=== PATIENT | female | born 1960 | race Caucasian/White ===

== ENCOUNTER → 2023-03-21 | Outpatient (CLI) | payer MEDICAID ==
--- NOTE | 2023-03-21 12:14 | CTL ---
EXAMINATION TYPE: CT Low Dose Lung DATE OF EXAM ORDERED: 03/21/2023 HISTORY: Long-term tobacco use. Lung cancer screening CT DLP: [address] CTDI: 1.8 mGy Automated exposure control for dose reduction was used. SCREENING VISIT: Baseline COMPARISON: None TECHNIQUE: Low dose computed tomography scan was performed through the chest at 1 mm thick sections a nd reconstructed images in multiple planes at 1 mm and [address] DIAGNOSTIC QUALITY: Satisfactory FINDINGS: LUNG NODULES: Present, detailed below: There is a 5 mm calcified nodule or benign granuloma superior left lower lobe axial image 95. No greater than 5 mm noncalcified pulmonary nodules LUNGS: COPD: Severity: Mild Fibrosis: Severity: None Lymph nodes: None Other findings: None RIGHT PLEURAL SPACE: Effusion: None Calcification: None Thickening: None Pneumothorax: None LEFT PLEURAL SPACE: Effusion: None Calcification: None Thickening: None Pneumothorax: None HEART: Heart Size: Normal Coronary Calcification: Small Pericardial Effusion: None OTHER FINDINGS: Upper abdomen: None Bony thorax: None Supraclavicular region: None Other: None IMPRESSION: No significant pulmonary nodules. CT LUNG RAD AND CT CHEST RECOMMENDATION: Lung-Rad 2 Benign Appearance or Behavior: Continue annual sc reening with LDCT in 12 months. S Modifier (other clinically significant findings): None
== END | disposition home or self-care (01) ==
LOC: RADCTMAIN 11:20
PROVIDERS: ATTEND Family Medicine
DX: Z12.2 Encounter for screening for malignant neoplasm of respiratory organs (principal); F17.210 Nicotine dependence, cigarettes, uncomplicated
CPT/HCPCS: 71271

== ENCOUNTER → 2024-04-05 | Outpatient (CLI) | payer MEDICAID ==
--- NOTE | 2024-04-05 08:30 | CTL ---
EXAMINATION TYPE: CT Low Dose Lung DATE OF EXAM ORDERED: 04/05/2024 COMPARISON: 03/21/2023 CLINICAL INDICATION: Female, 63 years old with history of Z12.2 screening respiratory system; [facility], emmanuel ng [place] screening, Lung cancer screening, History of Smoking/tobacco use. TECHNIQUE: Low dose computed tomography scan was performed through the chest at 1 mm thick sections a nd reconstructed images in multiple planes at 1 mm and [address] DLP: [address] CTDI: 1.87 mGy Automated exposure control for dose reduction was used. CT DIAGNOSTIC QUALITY: Satisfactory FINDINGS: Stable calcified 5 mm granuloma left lower lobe. Apical pleural thickening or scarring. No evidence of consolidation. No pulmonary edema. No pleural e ffusion or pneumothorax. A subpleural 2 mm nodule anterior segment of the left upper lobe is stable a nd has a benign appearance Basilar subsegmental scarring or atelectasis bilaterally. Heart size is normal. Mild atherosclerotic change aorta. There is mild coronary artery calcification. Assessment for adenopathy limited by noncontrast technique. Multilevel degenerative disc disease. Structures of the upper abdomen demonstrate a small hiatal hernia. Subcentimeter thickening or nodula rity of the adrenal gland too small to characterize but most likely in the basis of benign adenoma or hyperplasia. Ectasia of the upper abdominal aorta measuring up to 2.9 cm. IMPRESSION: 1. Stable benign-appearing pulmonary nodules. 2. Ectasia of the upper abdominal aorta are partially included in the [id number]. Aneurysm is not excluded. Recommend ultrasound of the abdomen. CT LUNG RAD AND CT CHEST RECOMMENDATION: Lung-Rad 2 Benign Appearance or Behavior: Continue annual sc reening with LDCT in 12 months. [facility], , 04/05/2024 8:28 AM
--- NOTE | 2024-04-05 16:48 | CA ---
Exercise Stress Test Report Name: Sherin Suazo Exam Date: 04/05/2024 08:48 Exam Location: [place] Stress Ht (in): 64 Wt (lb): 128 BSA: 1.62 Ordering Phys: Salvador Stinson DO Referring Phys: Salvador Stinson DO Technologist: Dread Kahn Age: 63 Gender: F : 1960 Procedure CPT: Indications: R07.89 chest pain ICD-10 Codes: Patient History: Medications: aspirin, nitro, hydrochlorothiazide, cozaar, atoravastatin, amlodipine, tolterodine Meds past 24 hrs: Pretest Chest Pain: STRESS TEST Que Protocol Exercise Duration (min:sec): 09:[address] Depressions (mm): Angina Score: Tena Score: Resting HR (bpm): 62 Peak HR (bpm): 133 Resting BP (mmHg): 160 / 73 Peak BP (mmHg): 233 / 90 MPHR: 157 Target HR: 133 % MPHR: 85 METS: 10.3 Total Dose: Peak Dose: Atropine: Double Product: 51843 BP Response: Stress Termination: Reached target heart rate Stress Symptoms: Dyspnea Stress Summary: ECG ANALYSIS Resting ECG: Stress ECG: CONCLUSIONS Patient underwent exercise stress EKG with a Que protocol treadmill stress test. Patient exercised into Stage 3 for a total of 9 minutes reaching a total of 10.3 METS. Patient's maximum heart rate was 133 which represented 84% age-predicted maximum heart rate. Patient's had hypertensive blood pressure response of blood pressure to 233 and procedures stopped. Stress EKG findings: At baseline patient's EKG showed normal sinus rhythm, normal axis, no significant ST or T wave abnormalities. At peak exercise, EKG showed no significant change from baseline. Conclusions: 1. Technically inadequate stress test given inability reach 85% maximum predicted heart rate 2. However at 84% maximum predicted heart rate no inducible ischemia 3. Good exercise capacity. 4. Hypertensive blood pressure response Dr. Alek Davis DO (Electronically Signed) Final Date: 05 April 2024 16:48
== END | disposition home or self-care (01) ==
LOC: RADCTMAIN 07:57
PROVIDERS: ATTEND Family Medicine
DX: Z12.2 Encounter for screening for malignant neoplasm of respiratory organs (principal); F17.210 Nicotine dependence, cigarettes, uncomplicated; R07.89 Other chest pain; R91.8 Other nonspecific abnormal finding of lung field; I77.811 Abdominal aortic ectasia; I10 Essential (primary) hypertension
CPT/HCPCS: 71271; 93017